=== PATIENT | male | born 1980 | race Caucasian/White ===

== ENCOUNTER 2019-05-16 15:55 | Emergency (ER) | payer MEDICAID, OTHER, SELFPAY ==
[~2019-05-16] VITALS: Ht 175.3 cm; Wt 74.0 kg
[~2019-05-16 15:55] MED LIST: DIGESTIVE AID
[2019-05-16] MEDS ORDERED: SODIUM CHLORIDE FLUSH 10ML SYR IVF ONE ×2 (16:30→18:30)
[2019-05-16 16:46] LABS: MEAN CORPUSCULAR HEMOGLOBIN 37.6 pg (27.5-34.5); MEAN CORPUSCULAR VOLUME 110.5 fL (81-97); MEAN PLATELET VOLUME 8.5 fL (7.4-10.4); PLATELET COUNT 136 x10^3/uL (130-400); RED BLOOD COUNT 4.51 x10^6/uL (4.38-5.82); RED CELL DISTRIBUTION WIDTH 18.9 % (9.4-14.8)
[2019-05-16 16:59] LABS: ALBUMIN 3.9 g/dL (3.4-5.0); ANION GAP 23 mmol/L (5-15); CALCIUM 8.6 mg/dL (8.5-10.1); CHLORIDE 104 mmol/L (98-107)
[2019-05-16 17:00] LABS: CREATININE 0.85 mg/dL (0.7-1.3)
[2019-05-16 17:01] LABS: RAPID INFLUENZA A Negative (Negative); RAPID INFLUENZA B Negative (Negative)
[2019-05-16 17:14] LABS: BASOPHILS % (AUTO) 0 % (0-1); EOSINOPHILS % (AUTO) 0 % (1-7); LYMPHOCYTES # (AUTO) 0.23 x10^3/uL (1-3.4); LYMPHOCYTES % (AUTO) 2 % (22-44); MD SCAN; MONOCYTES # (AUTO) 0.43 x10^3/uL (0.2-0.8); MONOCYTES % (AUTO) 3 % (2-9); NEUTROPHILS # (AUTO) 14.44 x10^3/uL (1.8-6.8); NEUTROPHILS % (AUTO) 96 % (42-75)
--- NOTE | 2019-05-16 17:20 | NUR ---
THIS PT AMBULATED TO ED W/ C/O FLU-LIKE SYMPTOMS X 3 DAYS. PT REPORTS IS ALSO CONCERNED MAY BE DETOXING FROM ALCOHOL, LAST DRINK LAST NOC. PT C/O COUGH, CONGESTION, N/V, BODY ACHES, AND SHAKING. PT REQUESTING PIV AND IVF, AWARE NEED EVAL BY ERP AT THIS TIME. PT REPORTS ROOMMATE DX W/ FLU, NO KNOWN EXPOSURE TO COVID. PT PLACED ON HYDRATOR.
--- NOTE | 2019-05-16 18:17 | NUR ---
PT C/O DRY HEAVING FOR A WHILE NOW. PT REPOSITIONED ON [facility]. AWARE PENDING EVAL BY ERP
[2019-05-16] MEDS ORDERED: SODIUM CHLORIDE 0.9% 1,000ML IVBOLUS ONE (18:30)
[2019-05-16] MEDS ORDERED: LORazepam 2 MG/ML, 1ML IVPush PRN (18:30)
[2019-05-16] MEDS ORDERED: ONDANSETRON 2MG/ML, 2ML IVPush ONE (18:30)
[2019-05-16] MEDS ORDERED: LORazepam 2 MG/ML, 1ML ONE (18:39)
[2019-05-16] MEDS ORDERED: ONDANSETRON 2MG/ML, 2ML ONE (18:39)
--- NOTE | 2019-05-16 18:50 | NUR ---
PIV PLACED IN RAC, MEDICATED ORDERED. IVF INFUSING ORDERED. PT THANKED RN FOR IVF, DENIED ANY NEEDS AT THIS TIME.
--- NOTE | 2019-05-16 18:57 | NUR ---
CALLED TO ROOM. PT C/O LEGS SHAKING "UNCONTROLLABLY." PT STATED "MAYBE IT'S A SZ." PT REPOSITIONED ON GURNEY, ENCOURAGED TO TAKE SLOW DEEP BREATHS. SHAKING STOPPED. PT STATED FEELING "MUCH BETTER," AFTER SHAKING STOPPED. NO SIGNS OF RESPIRATORY DISTRESS NOTED, NO LOSS OF BOWEL OR BLADDER, NO SHAKING IN ARMS OR UE NOTED. CALL LIGHT BACK IN HAND.
--- NOTE | 2019-05-16 19:03 | NUR ---
ERP AWARE OF SHAKING LIKE MOVEMENTS BY PT. WILL CONTINUE TO MONITOR.
--- NOTE | 2019-05-16 19:16 | NUR ---
REPORT TO DENILSON JUNIOR.
[2019-05-16] MEDS ORDERED: POTASSIUM CHLORIDE 20 MEQ TAB.ER.PRT PO ONE (19:30)
[2019-05-16] MEDS ORDERED: POTASSIUM CHLORIDE 20 MEQ TAB.ER.PRT ONE (19:39)
[2019-05-16 19:41] VITALS: BP 168/88
== END 2019-05-16 20:30 | disposition home or self-care (01) ==
LOC: ED 20:11
DX: K86.0 Alcohol-induced chronic pancreatitis (principal); F10.239 Alcohol dependence with withdrawal, unspecified; E87.6 Hypokalemia; R45.4 Irritability and anger; Y90.0 Blood alcohol level of less than 20 mg/100 ml
CPT/HCPCS: 36415; 71045; 80048; 82040; 83690; 85025; 87400; 96361; 96374; 96375; 99284; J2060; J2405; J7030